=== PATIENT | female | born 1990 | race Caucasian/White ===

== ENCOUNTER → 2023-07-23 06:58 | Outpatient (REF) | payer BC, SELFPAY | LOC: PNTC 06:58 | PROVIDERS: ATTENDING PHYSICIAN Obstetrics & Gynecology | DX: O30.039 Twin pregnancy, monochorionic/diamniotic, unspecified trimester (principal) | CPT/HCPCS: 76816; 76820; 76821 ==

== ENCOUNTER → 2023-07-27 07:32 | Outpatient (REF) | payer BC, SELFPAY | LOC: PNTC 07:32 | PROVIDERS: ATTENDING PHYSICIAN Obstetrics & Gynecology | DX: O30.039 Twin pregnancy, monochorionic/diamniotic, unspecified trimester (principal) | CPT/HCPCS: 59025 ==

== ENCOUNTER → 2023-07-30 07:01 | Outpatient (REF) | payer BC, SELFPAY | LOC: PNTC 07:01 | PROVIDERS: ATTENDING PHYSICIAN Obstetrics & Gynecology | DX: O30.039 Twin pregnancy, monochorionic/diamniotic, unspecified trimester (principal) | CPT/HCPCS: 59025; 76815 ==

== ENCOUNTER → 2023-08-03 08:51 | Outpatient (REF) | payer BC, SELFPAY | LOC: PNTC 08:51 | PROVIDERS: ATTENDING PHYSICIAN Obstetrics & Gynecology | DX: O30.039 Twin pregnancy, monochorionic/diamniotic, unspecified trimester (principal) | CPT/HCPCS: 59025 ==

== ENCOUNTER → 2023-08-06 07:04 | Outpatient (REF) | payer BC, SELFPAY | LOC: PNTC 07:04 | PROVIDERS: ATTENDING PHYSICIAN Obstetrics & Gynecology | DX: O30.039 Twin pregnancy, monochorionic/diamniotic, unspecified trimester (principal) | CPT/HCPCS: 59025; 76815; 76820; 76821 ==

== ENCOUNTER → 2023-08-10 08:16 | Outpatient (REF) | payer BC, SELFPAY | LOC: PNTC 08:16 | PROVIDERS: ATTENDING PHYSICIAN Obstetrics & Gynecology | DX: O30.039 Twin pregnancy, monochorionic/diamniotic, unspecified trimester (principal) | CPT/HCPCS: 59025 ==

== ENCOUNTER → 2023-08-13 07:04 | Outpatient (REF) | payer BC, SELFPAY | LOC: PNTC 07:04 | PROVIDERS: ATTENDING PHYSICIAN Obstetrics & Gynecology | DX: O30.039 Twin pregnancy, monochorionic/diamniotic, unspecified trimester (principal) | CPT/HCPCS: 59025; 76815 ==

== ENCOUNTER → 2023-08-17 09:05 | Outpatient (REF) | payer BC, SELFPAY | LOC: PNTC 09:05 | PROVIDERS: ATTENDING PHYSICIAN Obstetrics & Gynecology | DX: O30.039 Twin pregnancy, monochorionic/diamniotic, unspecified trimester (principal) | CPT/HCPCS: 59025 ==

== ENCOUNTER → 2023-08-20 07:31 | Outpatient (REF) | payer BC, SELFPAY | LOC: PNTC 07:31 | PROVIDERS: ATTENDING PHYSICIAN Obstetrics & Gynecology | DX: O30.039 Twin pregnancy, monochorionic/diamniotic, unspecified trimester (principal); O36.8310 Maternal care for abnormalities of the fetal heart rate or rhythm, first trimester, not applicable or unspecified | CPT/HCPCS: 59025; 76816; 76820; 76821 ==

== ENCOUNTER 2023-08-24 05:37 | Inpatient (IN) | payer BC, SELFPAY ==
[2023-08-24] MEDS: LR 1000 IV ×2 (05:55→06:58)
[2023-08-24 06:15] VITALS: BMI 26.3
[2023-08-24 06:20] LABS: Hematocrit 39.1 % (37.0-47.0); Mean Corp Hgb Conc. 35.8 g/dL (33.0-37.0); Mean Corpuscular Hgb 30.7 pg (27.0-31.0); Mean Corpuscular Volume 85.7 fL (81.0-99.0); Mean Platelet Volume 12.5 fL (7.4-10.4); Platelet Count 172 10^3/uL (130-400); Red Blood Cell Count 4.56 10^6/uL (4.20-5.40); Red Cell Dist. Width 12.4 % (11.5-14.5); White Blood Cell Count 7.3 10^3/uL (4.8-10.8)
[2023-08-24 06:34] VITALS: BP 126/81
[2023-08-24] MEDS: BICITRA 30 ML PO (07:00)
[2023-08-24] MEDS: TYLENOL 1000 MG PO (07:00)
[2023-08-24] MEDS: ANCEF 10 IV (07:01)
[2023-08-24 09:02] LABS: Cord ABG Comment CORD BLOOD
[2023-08-24 09:02] LABS: Cord ABG Comment CORD BLOOD
[2023-08-24 09:14] LABS: B.E. Cord ABG -0.9 mMOL/L; B.E. Cord ABG 0.3 mMOL/L; HCO3 Cord ABG 26.7 mmol/L; HCO3 Cord ABG 29.8 mmol/L; O2 Saturation % Cord ABG 25.7 %; PCO2 Cord ABG 53 mmHg; PCO2 Cord ABG 65 mmHg; PO2 Cord ABG 15 mmHg; PO2 Cord ABG < 6 mmHg; pH Cord ABG 7.27; pH Cord ABG 7.31
[2023-08-24 09:18] LABS: HCO3 Cord ABG 25.4 mmol/L; O2 Saturation % Cord ABG 20.8 %; PCO2 Cord ABG 62 mmHg; PO2 Cord ABG 15 mmHg; pH Cord ABG 7.22
[2023-08-24 09:22] LABS: B.E. Cord ABG -2.4 mMOL/L; HCO3 Cord ABG 25.7 mmol/L; O2 Saturation % Cord ABG 13.9 %; PCO2 Cord ABG 56 mmHg; PO2 Cord ABG 11 mmHg; pH Cord ABG 7.27
[2023-08-24] MEDS: PITOCIN 30 UNITS/NSS 500 ML IV (09:30)
[2023-08-24] MEDS: TORADOL 15 MG IV ×2 (14:58→20:51)
[2023-08-25] MEDS: TORADOL 15 MG IV ×2 (02:51→09:51)
[2023-08-25 06:55] LABS: Hematocrit 37.9 % (37.0-47.0); Hemoglobin 13.1 g/dL (12.0-16.0); Mean Corp Hgb Conc. 34.6 g/dL (33.0-37.0); Mean Corpuscular Hgb 30.5 pg (27.0-31.0); Mean Corpuscular Volume 88.3 fL (81.0-99.0); Mean Platelet Volume 12.2 fL (7.4-10.4); Platelet Count 164 10^3/uL (130-400); Red Blood Cell Count 4.29 10^6/uL (4.20-5.40); Red Cell Dist. Width 12.6 % (11.5-14.5); White Blood Cell Count 12.8 10^3/uL (4.8-10.8)
--- NOTE | 2023-08-25 07:39 | W.PN.ANS.POP ---
Anesthesia Post Operative
- Anesthesia Post Op Note
Vital Signs Stable-See Nursing Note: Yes
Airway Patent: Yes
Adequate Pain Control: Yes
Change in Mental Status: No
Current Postoperative Nausea & Vomiting: No
Anesthesia Complications: No
General Anesthetic Recall: No
Unplanned Admission: No
Post Op Hydration Adequate: Yes
[2023-08-25] MEDS: PRENATAL PLUS 1 TABLET PO (09:55)
[2023-08-25 15:00] LABS: Syphilis/T. pallidum Ab Reflex Negative (Negative)
[2023-08-25] MEDS: SENOKOT-S 1 TABLET PO (16:54)
[2023-08-25] MEDS: TYLENOL 650 MG PO ×2 (16:54→22:28)
[2023-08-25] MEDS: MOTRIN 600 MG PO ×2 (16:54→22:28)
--- NOTE | 2023-08-26 03:48 | DOWNTIME ---
There was a [employer]inator Downtime on 08/26/2023 from 0100 to 08/26/2023 at 0322. Downtime documentation of patient's care, including medication administrations, has been reconciled in the electronic record per guidelines. Refer to the
patient's paper chart under the miscellaneous tab to see printed paper medication records and downtime forms.
[2023-08-26] MEDS: MOTRIN 600 MG PO ×3 (05:31→18:31)
[2023-08-26] MEDS: TYLENOL 650 MG PO ×3 (05:31→18:31)
[2023-08-26] MEDS: PRENATAL PLUS 1 TABLET PO (12:30)
[2023-08-26] MEDS: SENOKOT-S 1 TABLET PO (18:31)
[2023-08-27] MEDS: MOTRIN 600 MG PO ×2 (01:02→12:21)
[2023-08-27] MEDS: TYLENOL 650 MG PO ×2 (01:02→12:21)
--- NOTE | 2023-08-27 09:53 | W.DS.TRANS ---
DC Summary - [employer]
-
Discharge Instructions:
Discharge Diagnosis/Procedures twin delivered by csection
Diet Regular
Activity No restrictions
Driving Restrictions No driving for 2 weeks
Bathing Restrictions OK to Shower
Instructions:
Stand-Alone Forms: LDRP Delivery
Changes to Home Medications: No
Discharge Medications:
DC Medications w/original date entered in [facility] [employer] [facility]
prenat.vits,yuni,xxu-owlb-amvvv 1 tab PO DAILY Supplement 08/24/23
acetaminophen 325 mg tablet 650 mg (2 x 325 mg) PO Q4HPRN PRN mild pain #0 tabs 08/26/23
ibuprofen 600 mg tablet 600 mg PO Q6HPRN PRN cramps #0 tabs 08/26/23
Home Medication Changes
Pending Results: Yes
Additional Pending Results:
placental path-sent to [facility]
Total time spent discharging patient (in min): 25
[2023-08-27] MEDS: PRENATAL PLUS PO (12:27)
== END 2023-08-27 16:25 | disposition home or self-care (01) | DRG 788 ==
LOC: LDRP 05:37
PROVIDERS: ADMITTING PHYSICIAN Obstetrics & Gynecology
PROC: 10D00Z1 Extraction of Products of Conception, Low, Open Approach (ICD-10-PCS; 2023-08-24)
DX: O36.5931 Maternal care for other known or suspected poor fetal growth, third trimester, fetus 1 (principal); O32.8XX1 Maternal care for other malpresentation of fetus, fetus 1; O43.123 Velamentous insertion of umbilical cord, third trimester; O30.033 Twin pregnancy, monochorionic/diamniotic, third trimester; Z3A.36 36 weeks gestation of pregnancy; Z37.2 Twins, both liveborn; Z14.1 Cystic fibrosis carrier
CPT/HCPCS: 82803; 85027; 86780; 86850; 86900; 86901